=== PATIENT | female | born 1985 | race African-American/Black ===

== ENCOUNTER 2022-04-06 09:25 | Day surgery (SDC) | payer OTHER ==
[~2022-04-06] VITALS: Ht 175.3 cm; Wt 82.2 kg
[2022-04-06] MEDS ORDERED: NEURONTIN300 MG/CAP PO (09:48)
[2022-04-06 11:05] VITALS: BP 114/78; PULSE 73; TEMP 97.7
[2022-04-06 11:20] VITALS: BP 120/79; PULSE 61
[2022-04-06 11:35] VITALS: BP 117/80; PULSE 59
[2022-04-06 11:50] VITALS: BP 117/78; PULSE 62
--- NOTE | 2022-04-06 12:05 | NUR ---
0940-PT AMBULATED TO BAY 3 WITHOUT DIFFICULTY ACCOMPANIED BY FRIEND. VS OBTAINED. CONSENT SIGNED. PT ASSESSED. 22G IV INFUSING LR IN R HAND. CALL LIGHT WITHIN REACH. DENIES ANY NEEDS. 1105-PT TO BAY 3 FROM ENDO ROOM. VS OBTAINED. CALL LIGHT WITHIN REACH. PT TOLERATING JUICE AND MUFFIN. 1155-IV DC'D. 1200-DISCHARGE EDUCATION COMPLETED WITH PT AND HER FRIEND. PT VERBALIZED UNDERSTANDING OF HOME AND FOLLOW UP CARE. ALL QUESTIONS ANSWERED. DISCHARGE PAPERWORK GIVEN TO PT. 1205-PT OFF UNIT PER WHEELCHAIR. PT DISCHARGED TO HOME WITH FRIEND PER PERSONAL VEHICLE.
[2022-04-06 14:00] VITALS: BP 106/72; PULSE 69; TEMP 98
== END 2022-04-06 12:05 | disposition home or self-care (01) ==
LOC: SDCO 09:25
DX: K29.50 Unspecified chronic gastritis without bleeding (principal); K62.89 Other specified diseases of anus and rectum; R63.4 Abnormal weight loss; Z79.899 Other long term (current) drug therapy; Z68.26 Body mass index [BMI] 26.0-26.9, adult
CPT/HCPCS: J2704; J7120